=== PATIENT | female | born 1960 | race Caucasian/White ===

== ENCOUNTER 2024-05-21 10:58 | Outpatient (CLI) | payer OTHER, SELFPAY ==
--- NOTE | 2024-05-21 11:15 | MR_ITS ---
[address] [address] Phone:?[phone] Fax:?[phone] Referring Physician Information: Sudeep Vicente M.D. [id number] [address] Phone:?[phone] Fax:?[phone] Patient:Erica Simons D.O.B:?1960 Sex:?Female Phone:?[phone] [facility] MRN:?[id number] Exam Date:?05/21/2024 EXAM: MRI OF THE LEFT KNEE CLINICAL INFORMATION: The patient is a 64-year-old with left knee pain. Evaluate for medial meniscal tear. PRIOR SURGERY: None reported. COMPARISON STUDIES: Comparison is made to prior radiographs dated 05/15/2024. TECHNICAL INFORMATION: Imaging was performed on a high-field, 1.5 Lian MR scanner. Axial proton-density and fat-suppressed T2 imaging of the left knee was performed in addition to sagittal proton-density and fat-suppressed proton- density imaging. Coronal proton-density and coronal STIR imaging was also performed. FINDINGS: Articular/Extraarticular collections: Effusion: Mild to moderate. Popliteal cyst: Minimal. Loose bodies: No well-defined intra-articular loose bodies are present. Subcutaneous and extraarticular soft tissues: Soft tissue edema can be seen along the medial aspect of the knee, in keeping with the medial meniscal tearing discussed below. Osseous structures: No evidence for marrow edema or cortical injury. No evidence for fracture or stress injury. No evidence for destructive bony lesion. Ligamentous structures: ACL: Intact and normal in appearance. PCL: Intact and normal in appearance. MCL: Intact and normal in appearance. LCL: Intact and normal in appearance. Posterolateral corner: Intact and normal in appearance. Posteromedial corner: No posteromedial corner soft tissue injury. Semimembranosus and pes anserine tendons demonstrate no tendinopathy or associated bursitis. Extensor mechanism/Patellar retinacular structures: Patellar tendon: Intact, without tendinopathy. Quadriceps tendon: Intact, without tendinopathy. Retinacula: The medial and lateral retinacula are intact. The medial patellofemoral ligament is intact. Medial compartment: Medial meniscus: The medial meniscus is abnormal in appearance. There is broad- based, complex tearing of the middle and posterior portions of the medial meniscus, involving the superior and inferior surfaces and extending to the meniscal attachment. The area was of tearing can be seen on sagittal series 6 image 11 and on coronal series 7 image 18 and measure approximately 24 mm in anteroposterior dimension and 26 mm in mediolateral dimension. Several small parameniscal cysts along the posterior and posteromedial periphery of the medial meniscus can be seen, the largest of which measures 8 mm in greatest dimension. The anterior horn of the medial meniscus appears intact. Medial femoral condyle: No chondromalacia, chondral defect, or osteochondral abnormality. Medial tibial plateau: No chondromalacia, chondral defect, or osteochondral abnormality. Lateral compartment: Lateral meniscus: No evidence for lateral meniscal tearing is present. No evidence for parameniscal cyst formation can be seen. Lateral femoral condyle: No chondromalacia, chondral defect, or osteochondral abnormality. Lateral tibial plateau: No chondromalacia, chondral defect, or osteochondral abnormality. Patellofemoral compartment: Patella: No chondromalacia, chondral defect, or osteochondral abnormality. Trochlea: No chondromalacia, chondral defect, or osteochondral abnormality. Neurovascular: No definite neurovascular abnormalities are seen. CONCLUSION: 1. Broad-based tearing of the middle and posterior portions of the medial meniscus. No lateral meniscal tearing is seen. 2. No chondral injuries along the articular surfaces are identified. 3. The cruciate and collateral ligaments appear intact. 4. No acute bony abnormalities are seen. 5. Mild to moderate knee joint effusion and minimal popliteal cyst. [facility] Electronically signed on 05/22/2024 6:42:00 AM by Umesh Cintron M.D.
== END 2024-05-21 10:59 | disposition home or self-care (01) ==
LOC: MRI 11:00
PROVIDERS: PCP Family Medicine; Visit Provider Orthopaedic Surgery Sports Medicine
DX: M25.562 Pain in left knee (principal); S83.242A Other tear of medial meniscus, current injury, left knee, initial encounter; M25.462 Effusion, left knee
CPT/HCPCS: 73721

== ENCOUNTER 2024-10-31 10:00 | Outpatient (RCR) | payer OTHER, SELFPAY ==
--- NOTE | 2024-08-02 11:53 | PT.OPEX ---
PT Advance Outpatient Eval PT [facility] Outpatient Eval Start: 08/02/24 07:09 Freq: Status: Active Protocol: Document 08/02/24 07:10 MLS (Rec: 08/02/24 11:51 MLS [id number]) E-signed By Adelina Mercado DPT Physical Therapy Outpatient Evaluation Insurance Information Recert Due Date 10/30/24 Insurance Name Medicare B,Other; See Comments Insurance Information/Comments [facility] Medical Diagnosis S83.242A other tear medial meniscus, initial encounter, current injury , left knee Treating Diagnosis Left knee strengthening Tubigrip size G Imaging Report Information From chart: MRI of the left knee dated 05/21/2024 [facility]: Broad base tearing middle and posterior portions medial meniscus Mild to moderate joint effusion and small popliteal cyst. Referring MD Dr. Smith Subjective Preferred Name Rosita Bee Patient is a 64 year old female who presents to physical therapy with s/p left knee medial meniscus tear. On May 12, she states that she was walking and took a step and just couldn't walk. Then she could not put any pressure on it. She was in [place] at the time. She went to urgent care, and they sent her to the ER. She was sent home with a brace. She came back to [place] and did xrays and MRI. Xrays were negative but MRI did show medial meniscus tear. Her son is getting in November. She states that some days are better than other. She will wear compression stockings at times. She is doing Joselo exercise body sculpting 30 minutes and then she does stretching about once per week . She states that she would like to return to yoga. She would like to return to body sculping three times a week. Aggravating factors include: flatter shoes, stepping down on that leg first. Alleviating factors include: ice. No significant past medical history. Patient would like to be able to dance at her sons wedding in November through attending her physical therapy sessions. Pain Comments Today: 3/10 on a 0-10 pain scale with 10 = extreme pain At its worst: 5/10 At its best: 0/10 Current Work Status [employer] Occupation Sitting and moving, walking, stairs Admin/registered nurse fetal Precautions Weight Bearing Status Full Weight Bearing Therapy Limitations/Systems Review Not Limited Objective Other/Pertinent Objective GAIT/FUNCTIONAL MOBILITY Single leg stance: no increase in pain Squat: no increase in pain KNEE ROM Extension/Flexion: R 0-130, L 0-120 HIP ROM Grossly tested WNL B LLE MMT: Hip flexion: R 4+/5 L 4+/5 Hip abduction: R 4+/5 L 4+/5 Hip extension: R 4+/5 L 4+/5 Knee flexion: R 5/5 L 5/5 Knee extension: R 5/5 L 5/5 SPECIAL TEST -Anterior drawer: negative -Abdiel test: negative -Posterior Drawer: negative -Valgus and Varus Test: stable 0 and 30 -Gina test: positive -Garcia Compression: negative -YVES test: negative -FADIR test: negative -Trochanteric Bursitis Test: negative JOINT MOBILITY/PALPATION Moderate tender medial retinaculum, severe tenderness medial joint line TX: Access Code: [email or web address] URL: [email or web address]. [employer]/ Date: 08/02/2024 Prepared by: Adelina Mercado Exercises - Supine Quad Set - 6 x daily - 5 x weekly - 3 sets - 10 reps - 5 hold - Supine Heel Slide - 3 x daily - 5 x weekly - 3 sets - 10 reps - 5 hold - Supine Active Straight Leg Raise - 3 x daily - 5 x weekly - 3 sets - 10 reps - 5 hold - Supine Short Arc Quad - 2-3 x daily - 20 reps - 3 hold - Sidelying Hip Abduction - 2 -3 x daily - 1-2 sets - 10 reps - Clamshell - 1 x daily - 7 x weekly - 3 sets - 10 reps Assessment Assessment/Impression Pt is a 64 year old female who presents with concerns of left knee pain s/p medial meniscus tear. Patient also has notable objective findings including limited ROM, tenderness to palpation, and decreased strength which are also likely contributing to the problem. Patient is a good candidate for skilled therapy to target deficits described above. Skilled PT intervention is necessary for use of therapeutic exercise manual therapy, neuromuscular re- education, gait training, and therapeutic activity. Functional impairments include difficulty with: standing, walking, exercising and ADLs. See appropriate sections of PT eval for complete list of goals and POC. D/C plan and criteria is for pt to achieve the goals as listed below or until max rehab potential is met. Pt was agreeable with plan of care and goals established. Primary Functional Limitations standing exercising walking ADLs Plan of Care Rehabilitation Potential Good Physical Therapy Goals Within 10-12 weeks: 1.Pt will demonstrate independence in performance of home exercise program with the use of video and/or handouts in order to optimize functional mobility and reduce risk for re-injury. 2.Pt will demonstrate consistent HEP compliance to ensure progress in reaching established goals during course of care. 3.Patient will be able to perform her workouts and yoga for up to one hour without pain. 4.Patient will report pain levels <2/10 with all activities in order to improve functional mobility at home, work and during functional leisure activities. 5.Patient is able to sleep without waking more than one time due to pain in a 6-8 hour time frame. 6.Patient will be able to walk up to one mile without pain. 7.Pt will be able to ascend/ descend 1 flight of stairs in order to perform ADLs pain free. Coordination/Communication With Referral Source Treatment Plan/Direct Interventions Gait Training,Joint Mobilization,Manual Therapy, Neuromuscular Re-ed, Therapeutic Activities, Therapeutic Exercises Patient Will Be Discharged From Therapy Independently Progressing Evaluation Billing Untimed Code Treatment Minutes 30 Complexity Low Certification Information Provider Signature Required Yes Provider Signature Shows Agreement With POC & Medical Necessity Physician NPI Number Write NPI# Here Physician Comment/Change : Physician Signature & Date Requested Please Sign/Date Here
== END 2024-11-20 12:40 | disposition home or self-care (01) ==
PROVIDERS: PCP Family Medicine; Visit Provider Orthopaedic Surgery Sports Medicine
DX: S83.242A Other tear of medial meniscus, current injury, left knee, initial encounter (principal); Z51.89 Encounter for other specified aftercare
CPT/HCPCS: 97110; 97161